=== PATIENT | female | born 1970 | race Caucasian/White ===

== ENCOUNTER 2019-05-02 05:37 | Day surgery (SDC) | payer BC ==
[~2019-05-02] VITALS: Ht 165.1 cm; Wt 100.2 kg
[2019-05-02] MEDS ORDERED: LR 1,000 ML IV ONE (06:00)
[2019-05-02] MEDS ORDERED: LIDOCAINE 1% MDV 20ML VIAL SQ PRN (06:00)
[2019-05-02] MEDS ORDERED: ceFAZolin SOD 1 GM in D5W MINI-BAG PLUS 50 ML IV ONE (06:00)
[2019-05-02] MEDS ORDERED: BUPIVACAINE/EPIN 0.25% 30 ML VIAL As Ordered ONE (07:16)
[2019-05-02] MEDS ORDERED: LIDOCAINE 2% INJ 100 MG/5 ML SDV (FOR ANES.) As Ordered ONE (07:33)
[2019-05-02] MEDS ORDERED: propofoL 200 MG/20 ML VIAL As Ordered ONE ×2 (07:33→08:38)
[2019-05-02] MEDS ORDERED: METOCLOPRAMIDE INJ 10MG/2ML VIAL (J2765) As Ordered ONE (07:33)
[2019-05-02] MEDS ORDERED: KETOROLAC 60 MG/2 ML VIAL (J1885) As Ordered ONE (07:33)
[2019-05-02] MEDS ORDERED: ACETAMINOPHEN 1000MG 100ML IV BTL (OFIRMEV) (J0131 PER 10MG) As Ordered ONE (07:33)
[2019-05-02] MEDS ORDERED: MIDAZOLAM INJ 2 MG/2 ML VIAL (J2250) As Ordered ONE (07:33)
[2019-05-02] MEDS ORDERED: dexameTHASONE 4 MG/ML 1ML VIAL (J1100) As Ordered ONE (07:33)
[2019-05-02] MEDS ORDERED: ROCURONIUM BROMIDE 50 MG/5 ML VIAL As Ordered ONE ×2 (07:33→08:19)
[2019-05-02] MEDS ORDERED: fentaNYL 250 MCG/5 ML INJECTION (J3010) As Ordered ONE (07:33)
[2019-05-02] MEDS ORDERED: SUGAMMADEX SODIUM 500 MG/5 ML VIAL (BRIDION) As Ordered ONE (07:33)
[2019-05-02] MEDS ORDERED: ONDANSETRON 4MG/2ML VIAL (J2405) As Ordered ONE (07:33)
--- NOTE | 2019-05-02 09:15 | RO ---
DATE OF PROCEDURE: 05/02/2019 PREOPERATIVE DIAGNOSIS: Left inguinal hernia. POSTOPERATIVE DIAGNOSIS: Left inguinal hernia (direct). PROCEDURE: Robotic assisted laparoscopic left inguinal hernia repair with ProGrip mesh. SURGEON: Dr. Fred Massey FACTORY LAY OUT ENGINEER: Beverly Lee (provided retraction, exposure, trocar placement and removal, abdominal wall closure and mesh placement). ANESTHESIA: ESTIMATED BLOOD LOSS: Minimal. FLUIDS: Crystalloid. BRIEF PROCEDURE SUMMARY: The patient was brought to the operating room and was given general anesthesia. After adequate anesthesia and preoperative antibiotics were given, the patient was prepped and draped in the usual sterile fashion. Next, a supraumbilical incision was made with a skin knife. Blunt dissection was carried down to fascia and Veress needle placed into the abdominal cavity and insufflated to 15 mm of pressure. A dilating 8 mm trocar was placed at this time and under direct visualization two lateral 8 mm trocars were placed. Next, the patient had evidence of epiploic fat that was actually stuck in the inguinal canal that was able to be removed with some minimal blunt dissection and cautery on the epiploic fat itself. This was on the sigmoid colon going into this area. Once this was mobilize nicely, the hernia contents were reduced manually. Then, a monopolar cut scissors was used to create the peritoneal flap. This was used to dissect through the previous Pfannenstiel incision that was present. There was some exposed rectus muscle posteriorly and no evidence of peritoneum in this area. This did make the dissection a little bit more difficult, but eventually I was able to create a nice peritoneal flap, exposing the cord structures, the epigastrics and the round ligament nicely. Then medial to this, the direct hernia. However, it was on the medial aspect of this and in general it was more medial than a typical direct inguinal and I anticipate it was probably an incisional hernia over the lateral border of the pubis more than an indirect, but given its location it also was nicely covered by the mesh that we placed later after dissection continued. First, the contents of the hernia sac were reduced completely revealing some preperitoneal fat that gone through the hernia defect. Once this was mobilized adequately, the Naun's ligament was well visualized and the posterior aspect of pubis all the way over to almost the right side of the pubis. The other side of Naun's was not visualized. At this point, the mesh was cut to the appropriate size and placed in the preperitoneal space and pressed into position. It was nicely fitting and covering the defect and the direct component as well as indirect components. The peritoneum was closed over this using a running V-Loc suture. There was a small rent in the peritoneum where this met up with the lateral border of this exposed rectus muscle. This was closed also with another 3-0 V-Loc suture. Next, all trocars were removed under direct visualization. 4-0 Vicryl was used to close all incisions. Steri-Strips and a dry sterile dressing was applied. The patient was awakened, extubated and brought to the recovery room awake, alert and hemodynamically stable. Sponge and needle counts were correct times two.
[2019-05-02] MEDS ORDERED: oxyCODONE 5MG TAB PO PRN (09:45)
[2019-05-02] MEDS ORDERED: NORCO, ANEXSIA 5/325MG TABLET (HYDROcodone/ACETAMINOPHEN) PO PRN (09:45)
[2019-05-02] MEDS ORDERED: fentaNYL 100 MCG/2 ML INJECTION (J3010) IV PRN (09:45)
[2019-05-02] MEDS ORDERED: MORPHINE 2 MG/ML 1ML VIAL (J2270) IV PRN (09:45)
[2019-05-02] MEDS ORDERED: METOCLOPRAMIDE INJ 10MG/2ML VIAL (J2765) IV PRN (09:45)
[2019-05-02] MEDS ORDERED: LR 1,000 ML IV SCH ×2 (09:45)
[2019-05-02] MEDS ORDERED: ONDANSETRON 4MG/2ML VIAL (J2405) IV PRN ×2 (09:45)
[2019-05-02 11:35] VITALS: BP 125/80
== END 2019-05-02 11:40 | disposition home or self-care (01) ==
LOC: M SDC 05:37
PROVIDERS: ATTEND Surgery
DX: K40.90 Unilateral inguinal hernia, without obstruction or gangrene, not specified as recurrent (principal)
CPT/HCPCS: 49650; C1781; J0131; J0690; J1100; J1885; J2250; J2405; J2765; J3010

== ENCOUNTER → 2023-10-19 | Outpatient (REF) | payer MEDICAID, OTHER ==
[2023-10-19 13:41] LABS: APPEARANCE, URINE CLEAR (CLEAR); BACTERIA, URINE AUTO 1+ (NEGATIVE); BILIRUBIN, URINE AUTO NEGATIVE (NEGATIVE); BLOOD, URINE BLOOD NEGATIVE (NEGATIVE); COLOR, URINE STRAW (YELLOW); GLUCOSE, URINE (UA) AUTO NEGATIVE (NEGATIVE); KETONE, URINE AUTO NEGATIVE (NEGATIVE); LEUKOCYTE ESTERASE, URINE AUTO NEGATIVE (NEGATIVE); MUCUS, URINE SMALL (NEGATIVE); NITRITE, URINE AUTO NEGATIVE (NEGATIVE); PROTEIN, URINE AUTO NEGATIVE (NEGATIVE); RBC, URINE AUTO 0 /HPF (0-3); SQUAMOUS EPITHELIAL CELL UR AU 1 /HPF (0-6); UROBILINOGEN, URINE AUTO 0.2 mg/dL (0.0-2.0); WBC, URINE AUTO 0 /HPF (0-3)
[2023-10-19 13:52] LABS: CREATININE,RANDOM URINE 40.6 MG/DL
[2023-10-19 13:59] LABS: TOTAL PROTEIN,RANDOM URINE < 6.0 MG/DL (0.0-14.0)
[2023-10-19 14:07] LABS: BASO # 0.1 10^3/uL (0.0-0.2); BASO % 0.5 % (0.0-1.0); EOS # 0.2 10^3/uL (0.0-0.5); EOS % 1.5 % (0.0-3.0); HEMATOCRIT 44.1 % (36.0-47.0); HEMOGLOBIN 13.9 g/dl (12.0-15.5); LYMPH # 1.7 10^3/uL (1.5-5.0); MEAN CORPUSCULAR HEMOGLOBIN 27.9 pg (27.0-33.0); MEAN CORPUSCULAR HGB CONC 31.5 g/dl (32.0-36.5); MEAN CORPUSCULAR VOLUME 88.4 fl (80.0-96.0); MONO # 0.5 10^3/uL (0.0-0.8); MONO % 4.9 % (2.0-8.0); NEUTROPHILS # 8.1 10^3/uL (1.5-8.5); NEUTROPHILS % 76.2 % (36.0-66.0); PLATELET COUNT, AUTOMATED 319 10^3/uL (150-450); RED BLOOD COUNT 4.99 10^6/uL (4.00-5.40); WHITE BLOOD COUNT 10.6 10^3/uL (4.0-10.0)
[2023-10-19 14:36] LABS: CPK CREATINE PHOSPHOKINASE 55 U/L (34-145)
[2023-10-19 14:37] LABS: ALKALINE PHOSPHATASE 72 U/L (46-116); ALT/SGPT 17 U/L (7.0-40); AST/SGOT < 8 U/L (<34); BILIRUBIN,DIRECT 0.4 MG/DL (<0.4); BILIRUBIN,TOTAL 1.3 MG/DL (0.3-1.2); BLOOD UREA NITROGEN 11 MG/DL (9-23); CALCIUM LEVEL 9.1 MG/DL (8.5-10.1); CARBON DIOXIDE LEVEL 28 MMOL/L (20-31); CHLORIDE LEVEL 105 MMOL/L (98-107); CREATININE FOR GFR 0.54 MG/DL (0.55-1.30); FOLATE 11.77 NG/ML (>5.4); GLOMERULAR FILTRATION RATE > 60.0 (>51); GLUCOSE, FASTING 82 MG/DL (60-100); POTASSIUM SERUM 4.2 MMOL/L (3.5-5.1); SODIUM LEVEL 137 MMOL/L (136-145); TOTAL PROTEIN 7.9 G/DL (5.7-8.2)
[2023-10-19 14:40] LABS: COMPLEMENT C3 167.1 MG/DL (90.0-170.0); COMPLEMENT C4 29.8 MG/DL (12-36)
[2023-10-19 14:43] LABS: VITAMIN B12 LEVEL 494 PG/ML (211-911)
[2023-10-19 15:10] LABS: ERYTHROCYTE SEDIMENTATION RATE 49 mm/hr (0-30)
[2023-10-22 16:16] LABS: ALDOLASE 7.3 U/L (< OR = 8.1)
[2023-10-23 21:17] LABS: COMPLEMENT TOTAL (CH50) > 60 U/mL (31-60)
[2023-10-24 19:02] LABS: NICOTINAMIDE < 20 ng/mL (see note); NICOTINIC ACID < 20 ng/mL (see note); VITAMIN B2 (RIBOFLAVIN) 19.2 nmol/L (6.2-39.0)
[2023-10-25 02:27] LABS: VITAMIN B1 LEVEL WHOLE BLOOD 133 nmol/L (78-185)
== END ==
LOC: M SFHCRHEU 11:21
PROVIDERS: ATTEND Internal Medicine
DX: R76.8 Other specified abnormal immunological findings in serum (principal); M25.48 Effusion, other site; R25.2 Cramp and spasm; R20.2 Paresthesia of skin; R29.898 Other symptoms and signs involving the musculoskeletal system